=== PATIENT | male | born 2000 | race Hispanic/Latino ===

== ENCOUNTER 2024-12-22 13:07 | Emergency (ER) | payer BC ==
[~2024-12-22] VITALS: Ht 167.6 cm; Wt 68.5 kg
[2024-12-22] MEDS: NORCO, ANEXSIA 5/325MG TABLET (HYDROcodone/ACETAMINOPHEN) PO ONE (16:39)
[2024-12-22] MEDS ORDERED: HYDR-3713 PO (17:20)
[2024-12-22 17:34] VITALS: BP 129/73; TEMP 98.9; O2SAT 98
== END 2024-12-22 17:38 | disposition home or self-care (01) ==
LOC: M ED 13:07
DX: S62.312A Displaced fracture of base of third metacarpal bone, right hand, initial encounter for closed fracture (principal); X58.XXXA Exposure to other specified factors, initial encounter; Y92.009 Unspecified place in unspecified non-institutional (private) residence as the place of occurrence of the external cause; Y93.9 Activity, unspecified; Y99.9 Unspecified external cause status; Z88.0 Allergy status to penicillin

== ENCOUNTER 2024-12-25 12:19 | Day surgery (SDC) | payer BC ==
[~2024-12-25] VITALS: Ht 172.7 cm; Wt 68.5 kg
[~2024-12-25 12:19] MED LIST: HYDR-3713 PO
[2024-12-25] MEDS ORDERED: LR 1,000 ML IV SCH ×2 (13:10→18:05)
[2024-12-25] MEDS ORDERED: LIDOCAINE 1% SDV 5ML VIAL SC PRN (13:10)
[2024-12-25] MEDS ORDERED: MIDAZOLAM INJ 2MG/2ML VIAL As Ordered ONE (16:01)
[2024-12-25] MEDS ORDERED: fentaNYL 100 MCG/2 ML INJECTION As Ordered ONE (16:01)
[2024-12-25] MEDS ORDERED: LIDOCAINE 2% 100MG/5ML SDV (FOR ANES.) As Ordered ONE (16:02)
[2024-12-25] MEDS ORDERED: propofoL 200 MG/20 ML VIAL As Ordered ONE (16:02)
[2024-12-25] MEDS ORDERED: ONDANSETRON 4MG 2ML VIAL As Ordered ONE (16:02)
[2024-12-25] MEDS ORDERED: KETOROLAC 30 MG/ML 1ML VIAL As Ordered ONE (16:02)
[2024-12-25] MEDS: ceFAZolin SOD 2 GM IV ONCE IV ONE (16:50)
[2024-12-25] MEDS ORDERED: fentaNYL 100 MCG/2 ML INJECTION IV PRN (18:05)
[2024-12-25] MEDS: oxyCODONE 5MG TAB PO PRN (18:26)
[2024-12-25] MEDS: HYDROMORPHONE HCL 0.5 MG/ 0.5 ML SYRINGE IV PRN (18:26)
[2024-12-25] MEDS: ONDANSETRON 4MG 2ML VIAL IV PRN (18:27)
[2024-12-25 19:25] VITALS: BP 146/91; TEMP 98.7; O2SAT 96
== END 2024-12-25 19:52 | disposition home or self-care (01) ==
LOC: M SDC 12:19
PROVIDERS: ATTEND Orthopaedic Surgery
DX: S62.322A Displaced fracture of shaft of third metacarpal bone, right hand, initial encounter for closed fracture (principal); W22.09XA Striking against other stationary object, initial encounter; Y93.9 Activity, unspecified; Y92.9 Unspecified place or not applicable; F17.290 Nicotine dependence, other tobacco product, uncomplicated
CPT/HCPCS: 26615; 76000; C1713; J0665; J0690; J1100; J1171; J1885; J2250; J2405; J3010

== ENCOUNTER → 2024-12-26 | Outpatient (CLI) | payer BC | LOC: M SOG 13:37 | PROVIDERS: ATTEND Physician Assistant | DX: S62.322A Displaced fracture of shaft of third metacarpal bone, right hand, initial encounter for closed fracture (principal) ==

== ENCOUNTER → 2025-01-08 | Outpatient (CLI) | payer BC | LOC: M SOG 07:55 | PROVIDERS: ATTEND Physician Assistant | DX: S62.322A Displaced fracture of shaft of third metacarpal bone, right hand, initial encounter for closed fracture (principal); Z98.890 Other specified postprocedural states; X58.XXXA Exposure to other specified factors, initial encounter; Y92.9 Unspecified place or not applicable; Y93.9 Activity, unspecified; Y99.9 Unspecified external cause status ==